=== PATIENT | female | born 1945 | race Caucasian/White ===

== ENCOUNTER 2016-01-30 07:29 | Inpatient (IN) | payer MEDICARE, OTHER ==
[2016-02-04] MEDS ORDERED: CARI350T20 PO (08:30)
[2016-02-04] MEDS ORDERED: ESTR.625 PO (08:30)
[2016-02-04] MEDS ORDERED: ISOS30TA3 PO (08:30)
[2016-02-04] MEDS ORDERED: NAPR500 PO (08:30)
[2016-02-04] MEDS ORDERED: METO25TA3 PO (08:30)
[2016-02-04] MEDS ORDERED: HYDR25TA5 PO (08:30)
[2016-02-04] MEDS ORDERED: GABA300C5 PO (08:30)
[2016-02-04] MEDS ORDERED: CYAN1000P IM (08:30)
--- NOTE | 2016-02-06 11:27 | MH ---
cc: Samina CORTÉS M.D. DATE OF ADMISSION 02/11/2016 ADMITTING DIAGNOSIS Severe osteoarthritic degeneration left knee now being admitted for left total knee arthroplasty. ADMISSION HISTORY AND PHYSICAL FOLLOWS This pleasant 70-year-old female is being admitted today for a left total knee arthroplasty due to severe painful osteoarthritic degeneration of the left knee. OTHER PAST HISTORY 1. The patient has a history of arthritis. 2. Heart problems and she has been cleared by her hotbed lever operator. 3. Low back pain and sciatica. CURRENT MEDICATIONS 1. Aspirin stopped before surgery. 2. Cyanocobalamin 3. Cyclobenzaprine 4. Hydrochlorothiazide 5. Isosorbide 6. Metoprolol 7. Premarin 8. Soma REVIEW OF SYSTEMS Noncontributory FAMILY HISTORY Noncontributory SOCIAL HISTORY She does not smoke or drink. ALLERGIES SHE IS ALLERGIC TO IODINE, BETADINE AND PENICILLIN. PHYSICAL EXAMINATION We find a 70-year-old female well-developed, well-nourished oriented x3 complaining of pain in her left knee. VITAL SIGNS: Blood pressure 120/82, pulse 50 and regular, respirations 20, temperature 97.5, pulse oximetry 97% on room air. HEENT: Eyes PERRL, EOMI. Ears, nose, mouth clear. NECK: Supple. LUNGS: Clear. HEART: Regular rate. ABDOMEN: Soft, positive bowel sounds, nontender. EXTREMITIES: The left knee has crepitance on range of motion neurovascularly to her toes. IMPRESSION At this time, severe painful osteoarthritic degeneration left knee. PLAN Admission for a left total knee arthroplasty today. The patient given prescription for postoperative pain control and anticoagulation control in the office. She understands to use Hibiclens scrub and Bactroban preoperatively. She has already had a right total knee. MD DIAMANTE Mir/CARLA /12:27 PM /11:20 AM
[2016-02-11 09:12] VITALS: BP 163/68; PULSE 58; RESP 20; TEMP 98; O2SAT 96
[2016-02-11] MEDS ORDERED: CLINDAMYCIN 900 MG/NS 100 ML IV SCH ×2 (09:30)
[2016-02-11] MEDS ORDERED: SODIUM CHLORID 0.9% 500 ML IV SCH (09:45)
[2016-02-11] MEDS ORDERED: METOPROLOL TARTRATE 25 MG TAB PO PRN (09:45)
[2016-02-11] MEDS ORDERED: VANCOMYCIN 1000 MG/NS 250 ML (for <70 kg) IV SCH ×2 (09:45)
[2016-02-11] MEDS ORDERED: LACTATED RINGER'S 1000 ML IV SCH (09:45)
[2016-02-11] MEDS ORDERED: INSULIN HUMAN REGULAR 1,000 UNITS/10 ML VIAL SQ PRN (09:45)
[2016-02-11] MEDS ORDERED: ceFAZolin INJ 1,000 MG VIAL ONE (10:10)
[2016-02-11] MEDS ORDERED: GENTAMICIN SULFATE 80 MG/2 ML VIAL ONE (10:13)
[2016-02-11] MEDS ORDERED: METO25TA3 PO (10:16)
[2016-02-11] MEDS ORDERED: TRANEXAMIC ACID INJ 840 MG in SODIUM CHLORIDE 0.9% INJ 100 ML IV SCH ×2 (10:30→14:00)
[2016-02-11] MEDS ORDERED: MIDAZOLAM HCL 5 MG/5 ML VIAL ONE (10:40)
[2016-02-11] MEDS ORDERED: FAMOTIDINE 20 MG/2 ML VIAL ONE (10:41)
--- NOTE | 2016-02-11 10:56 | HHI.FF ---
Face to Face Verification Diagnosis: (1) Total knee replacement status Physical Therapy Gait training Knee: Total knee, Protocol: Left, Full weight bearing Canvas Knee Splint: When in bed & 2 pillows btw thighs Nursing RN: 3 days/week x 2 weeks Nursing: Becka teaching, Dressing changes Dressing Changes: Daily dressing change, 4x4s, Gauze, Paper tape I have seen patient Urmila Ayala on 02/11/16. My clinical findings support the need for the requested home health care services because: Limited ability to care for self High risk of falls I certify that my clinical findings support that this patient is homebound because: Unsteady gait/balance Samina Guillermo MD Feb 11, 2016 10:56
[2016-02-11] MEDS ORDERED: WALKER WHEELS/F1 MIS (10:58)
[2016-02-11] MEDS ORDERED: COMMODE 3-IN-11 MIS (10:58)
[2016-02-11] MEDS ORDERED: CPMMACHINE (10:58)
[2016-02-11] MEDS ORDERED: NALOXONE HCL 0.4 MG/ML AMP IV PRN (11:00)
[2016-02-11] MEDS ORDERED: TRANEXAMIC ACID INJ 0 MG in SODIUM CHLORIDE 0.9% INJ 100 ML IV SCH (11:00)
[2016-02-11] MEDS ORDERED: ACETAMINOPHEN 325 MG TAB PO PRN (11:00)
[2016-02-11] MEDS ORDERED: Post-op Orders (for Pharmacy) MISC XX ONE (11:00)
[2016-02-11] MEDS ORDERED: diphenhydrAMINE HCL 50 MG/ML VIAL IV PRN (11:00)
[2016-02-11] MEDS ORDERED: SODIUM CHLORIDE 0.9% FLUSH 5 ML FLUSH IVF PRN (11:00)
[2016-02-11] MEDS ORDERED: BUPIVACAINE LIPOSO PF 1.3% INJ 20 ML, BUPIVACAINE PF 0.25% INJ 20 ML in SODIUM CHLORIDE... P-ARTICULR SCH (11:00)
[2016-02-11] MEDS ORDERED: ONDANSETRON HCL 4 MG/2 ML VIAL IV PUSH ONE (11:22)
[2016-02-11] MEDS ORDERED: PROPOFOL 200 MG/20 ML AMP IV ONE (11:22)
[2016-02-11] MEDS ORDERED: LACTATED RINGER'S 1000 ML INJ 1,000 ML IV ONE (11:22)
[2016-02-11] MEDS ORDERED: ONDANSETRON HCL 4 MG/2 ML VIAL IVP PRN (12:00)
[2016-02-11] MEDS ORDERED: CYANOCOBALAMIN 1000 MCG/ML VIAL IM SCH (12:00)
[2016-02-11] MEDS ORDERED: TEMAZEPAM 15 MG CAP PO PRN (12:00)
[2016-02-11] MEDS ORDERED: BUPIVACAINE HCL PF 0.5% 30 ML VIAL NB ONE (12:57)
[2016-02-11] MEDS ORDERED: BUPIVACAINE HCL PF 0.25% 30 ML VIAL NB ONE (12:58)
[2016-02-11] MEDS: GABAPENTIN 300 MG CAP PO SCH ×2 (13:00→17:54)
[2016-02-11] MEDS: PCA - TOTAL MG MORPHINE DELIVERED PER SHIFT SCH ×2 (14:00→21:14)
[2016-02-11] MEDS ORDERED: DO NOT ADM ANY ANTICOAGULANT DRUGS XX PRN (14:28)
[2016-02-11] MEDS ORDERED: *MEPERIDINE 25 MG INJ VIAL PERIprocedural Use ONLY ONE (14:39)
[2016-02-11] MEDS ORDERED: fentaNYL CITRATE 250 MCG/5 ML AMP ONE (14:39)
[2016-02-11] MEDS ORDERED: MORPHINE SULFATE 4 MG/ML INJ ONE (14:40)
[2016-02-11] MEDS ORDERED: *morphine SULFATE 8 MG/ML PERIprocedure ONLY ONE (14:49)
[2016-02-11] MEDS ORDERED: CLINDAMYCIN INJ 900 MG in SODIUM CHLORIDE 0.9% INJ 100 ML IV SCH (15:00)
[2016-02-11] MEDS: LACTATED RINGER'S 1000 ML INJ 1,000 ML IV SCH ×2 (15:09→21:19)
[2016-02-11] MEDS: MORPHINE SULFATE 30 MG/30 ML PCA IV SCH ×2 (15:21→21:28)
--- NOTE | 2016-02-11 15:23 | RADRPT ---
EXAM DATE/TIME: 02/11/2016 14:46 [facility] COMPARISON: CHEST SINGLE AP, March 21, 2015, 8:28. INDICATIONS : Evaluate knee post-op total replacement. MEDICAL HISTORY : None. SURGICAL HISTORY : None. ENCOUNTER: Initial ACUITY: 1 day PAIN SCORE: 10/10 LOCATION: Left Knee FINDINGS: The patient is post left knee arthroplasty. Orthopedic hardware is in excellent position and alignmen t is good. CONCLUSION: 1. Good alignment of the patient's left the arthroplasty. Bert Reyna MD on February 11, 2016 at 15:20 Board Certified Radiologist. This report was verified electronically.
[2016-02-11] MEDS: HYDROCHLOROTHIAZIDE 25 MG TAB PO SCH (17:00)
[2016-02-11] MEDS: ESTROGENS CONJUGATED 0.625 MG TAB PO SCH (17:00)
[2016-02-11 17:25] VITALS: BP 140/69; PULSE 51; RESP 16; TEMP 95.4; O2SAT 96
[2016-02-11] MEDS: CLINDAMYCIN INJ 900 MG in SODIUM CHLORIDE 0.9% INJ 100 ML IV SCH (17:55)
--- NOTE | 2016-02-11 18:18 | PD.CONS ---
[facility] Requested By Orthopedic surgery Reason for Consult Medical management Primary Care Physician Non-Staff Diagnoses: History of Present Illness 7-year-old female with a history of hypertension, prior history of right TKA, now with severe left knee OA despite medical management continued to have severe worsening left knee pain affecting her daily living of activity was taken to the OR and underwent left total knee arthroplasty. Patient is seen post procedure in room and complains of left knee pain, however denies any chest pain or shortness of breath. Otherwise vitals stable. [id number] in the room Review of Systems Other Other 12 systems reviewed and negative except for the one mentioned in the history of present illness Past Family Social History Allergies: Coded Allergies: Betadine (Verified Allergy, Severe, Hives, 02/04/16) Iodine (Verified Allergy, Severe, Hives, 02/04/16) Penicillin (Verified Allergy, Severe, SEVERE DIARRHEA, 02/04/16) Shellfish (Verified Allergy, Severe, HIVES, MOUTH FEELS SWOLLEN, 02/04/16) [place] (Verified Allergy, Severe, Hives, 02/04/16) Uncoded Allergies: STRAWBERRIES (Allergy, Unknown, 02/11/16) Past Medical History angina hypertension Raynaud's syndrome Left knee OA Past Surgical History s/p left total knee arthroplasty 02/11/16 Right total knee arthroplasty Back surgery Reported Medications 1. Aspirin 2. Cyanocobalamin 3. Cyclobenzaprine 4. Hydrochlorothiazide 5. Isosorbide 6. Metoprolol 7. Premarin 8. Soma Family History Noncontributory Social History Patient denies tobacco, alcohol or illicit drug intake Physical Exam Vital Signs Vital Signs Date Time Temp Pulse Resp B/P Pulse Ox O2 Delivery O2 Flow Rate FiO2 02/11/16 17:25 95.4 51 16 140/69 96 02/11/16 17:00 97.9 58 13 108/33 96 Nasal Cannula 2 02/11/16 16:30 50 12 140/70 93 Nasal Cannula 2 02/11/16 16:00 53 12 142/74 97 Nasal Cannula 2 02/11/16 15:30 61 12 137/66 97 Nasal Cannula 2 02/11/16 15:21 15 02/11/16 15:15 60 12 150/79 96 Nasal Cannula 3 02/11/16 15:00 90 14 141/75 97 Nasal Cannula 3 02/11/16 14:45 61 16 150/70 96 Nasal Cannula 3 02/11/16 14:32 97.6 62 15 138/68 86 Nasal Cannula 3 02/11/16 09:12 98.0 58 20 163/68 96 Physical Exam GENERAL: This is a well-nourished, well-developed patient, in no apparent distress. SKIN: No rashes, ecchymoses or lesions. Cool and dry. HEAD: Atraumatic. Normocephalic. No temporal or scalp tenderness. EYES: Pupils equal round and reactive. Extraocular motions intact. No scleral icterus. No injection or drainage. ENT: Nose without bleeding, purulent drainage or septal hematoma. Throat without erythema, tonsillar hypertrophy or exudate. Uvula midline. Airway patent. NECK: Trachea midline. No JVD or lymphadenopathy. Supple, nontender, no meningeal signs. CARDIOVASCULAR: Regular rate and rhythm without murmurs, gallops, or rubs. RESPIRATORY: Clear to auscultation. Breath sounds equal bilaterally. No wheezes , rales, or rhonchi. GASTROINTESTINAL: Abdomen soft, non-tender, nondistended. No hepato-splenomegaly , or palpable masses. No guarding. MUSCULOSKELETAL: Extremities without clubbing, cyanosis, or edema. No joint tenderness, effusion, or edema noted. No calf tenderness. Negative Homans sign bilaterally. Left knee repair, in dressing-neurovascular intact NEUROLOGICAL: Awake and alert. Cranial nerves II through XII intact. Motor and sensory grossly within normal limits. Five out of 5 muscle strength in all muscle groups. Normal speech. Laboratory Laboratory Tests Test 02/11/16 09:43 Blood Type O POSITIVE Antibody Screen NEGATIVE Imaging Last Impressions Knee X-Ray 02/11/16 1047 Signed Impressions: Service Date/Time: Thursday, February 11, 2016 14:46 - CONCLUSION: 1. Good alignment of the patient's left the arthroplasty. Bert Reyna MD Assessment and Plan Assessment and Plan 70-year-old female with 1-Left total knee arthroplasty 02/11/16: Management per orthopedic surgery, continue current postop care with IV antibiotics, pain management, Lovenox DVT prophylaxis. PT consult to treat and eval 2-Hypertension: Resume metoprolol, hydrochlorothiazide and Isosorbide mononitrate 3-Neuropathy: Continue Neurontin 4-DVT prophylaxis: Lovenox Check CBC, BMP in a.m. Thank you for this consultation Code Status Full code Discussed Condition With Patient, [id number] Napoleno Kirkpatrick MD Feb 11, 2016 18:17
[2016-02-11] MEDS ORDERED: RESP: ALBUTEROL 2.5 MG/IPRATROPIUM 0.5 MG NEB (PRN) NEB (18:30)
--- NOTE | 2016-02-11 19:04 | MP ---
cc: Samina GUILLERMO Corrected Copy: 02/18/16 DATE OF SURGERY 02/11/16 PREOPERATIVE DIAGNOSIS Osteoarthritic degeneration left knee. POSTOPERATIVE DIAGNOSIS Osteoarthritic degeneration left knee. PROCEDURE Total knee arthroplasty. COMPONENTS USED Consensus components with pre made cutting jigs. The sizes were the femur 4, tibia 2, a 10 insert and a size 2 patella. Two batches of cobalt blue cement. SURGEON Dr. Ivette Guillermo ENVELOPE FOLDING MACHINE OPERATOR Samina Mack, [facility] ANESTHESIA General intubation and block PROCEDURE IN DETAIL After successful induction of anesthesia, the patient is placed on the operating room table in the supine position. The knee is prepped and draped in the usual manner. A tourniquet is inflated at the upper thigh and set to 300 mmHg pressure after exsanguination of the lower extremity. A longitudinal incision is made extending from 3 inches proximal to the superior pole of the patella, across the patella in longitudinal fashion, and down past the insertion of the tibial tubercle into the proximal tibia. The incision is carried down through subcutaneous tissue along the medial aspect of the patella and retinaculum, down through the capsule to expose the knee joint. The patella and patellar tendon are freed up enough to allow the patella to be inverted and retracted off the lateral side of the knee joint. The knee joint is left exposed. Small osteophytes are removed. All soft tissue is removed to allow proper position of the femoral and tibial cutting jig guide. The first femoral jig is then inserted along the distal end of the femur after first measuring to decide whether this is a small, medium, or large component. The notch is then drilled and the tibial cutting guide inserted into the femoral cutting guide, along with the ankle brace to allow for proper measurement of the tibial cutting surface that needed to be resected. Pins are inserted into the tibial cutting jig and femoral cutting jig to hold them in place. An oscillating saw is then used to resect the surface of the tibia. The surface of the tibia is then completely removed using sharp and blunt dissection. The anterior and posterior cuts of the femur are then made as well using an oscillating saw through the cutting guide. All guides are then removed and the varus/valgus angulation cutting guide applied to the femur for proper measurement of the proper amount of valgus. The anterior cutting guide for the femur is then inserted at the anterior femoral cuts made. Next, the first block trial is inserted into the femur to allow for proper condyle drill holes to be made which are then made followed by removal of the bone between the condyles using an oscillating saw as well as the bone removed at the most posterior surface of the condyle. After this, this guide is removed and the chamfer cuts made using the chamfer cutting guide from both anterior and posterior. Next, the femoral trial is then inserted, the tibial surface reflected anterior to expose the tibial surface and a tibial stem guide is inserted after first measuring for a standard, standard plus, large, or large plus surface to be used. After the stem is impacted the trial tibial surface is applied followed by the trial meniscal components. After full range of motion is found with the appropriate length meniscal components varying the patella is prepared by resecting the posterior aspect of the patella using an oscillating saw, inserting a trial. The trial is then removed and the cruciate cutting guide applied using the bur to cut the cruciate cuts. After cruciate cuts are made all trials are removed. The wound is irrigated copiously with antibiotic solution and Water Pik and the actual components inserted into place using the aforementioned components. Tourniquet deflated. Total tourniquet time being 56 minutes at 300 mmHg pressure 120 mL of Exparel and 20 of Marcaine was injected around the knee joint for extra pain control. No drain utilized. Deep fascia approximated with running #2 quill subcutaneous tissue approximated using interrupted running 2-0 and 3-0 Monocryl suture and Steri-Strips sterile dressing, knee immobilizer. Estimated blood loss 200 mL. Sponge and suture count correct. The patient tolerated procedure well and left the operating in satisfactory condition. J. MD DIAMANTE Garcia/ /2:00 PM /9:31 AM
[2016-02-11 20:00] VITALS: BP 149/68; PULSE 69; RESP 16; TEMP 96.4; O2SAT 95
[2016-02-11] MEDS: METOPROLOL TARTRATE 25 MG TAB PO SCH (21:14)
[2016-02-11] MEDS: CARISOPRODOL 350 MG TAB PO PRN (21:14)
[2016-02-11] MEDS: ISOSORBIDE MONONITRATE 30 MG TAB PO SCH (21:14)
[2016-02-11] MEDS: SODIUM CHLORIDE 0.9% FLUSH 5 ML FLUSH IVF SCH (21:14)
[2016-02-11 23:00] VITALS: O2SAT 96
[2016-02-12] VITALS (8 sets, daily range): BP systolic 104–140; BP diastolic 51–68; PULSE 56–111; RESP 12–20; TEMP 95.7–99.6; O2SAT 93–100
[2016-02-12] MEDS: CLINDAMYCIN INJ 900 MG in SODIUM CHLORIDE 0.9% INJ 100 ML IV SCH ×2 (01:50→08:05)
[2016-02-12] MEDS: CARISOPRODOL 350 MG TAB PO PRN (04:19)
[2016-02-12] MEDS: PCA - TOTAL MG MORPHINE DELIVERED PER SHIFT SCH ×3 (06:00→20:25)
[2016-02-12] MEDS: CHLORHEXIDINE GLUCONATE 4% SOLN 120 ML BTL TOP SCH (07:15)
[2016-02-12 08:00] LABS: HEMATOCRIT 33.1 % (35.0-46.0); REVIEW FLAG FINAL
[2016-02-12] MEDS: GABAPENTIN 300 MG CAP PO SCH ×3 (08:04→16:30)
[2016-02-12] MEDS: ACETAMINOPHEN/HYDROcodone 325 MG/7.5 MG TAB PO PRN ×3 (08:04→20:17)
[2016-02-12] MEDS: SODIUM CHLORIDE 0.9% FLUSH 5 ML FLUSH IVF SCH ×2 (08:05→20:09)
[2016-02-12] MEDS: HYDROCHLOROTHIAZIDE 25 MG TAB PO SCH (08:06)
[2016-02-12] MEDS: ESTROGENS CONJUGATED 0.625 MG TAB PO SCH (08:06)
--- NOTE | 2016-02-12 08:11 | PD.ORT.PN ---
Subjective Subjective Remarks patient complaining of severe lumbar radiculopathy and spasming down entire left leg. Hx of radiculopathy worse today. Objective Vitals Vital Signs Date Time Temp Pulse Resp B/P Pulse Ox O2 Delivery O2 Flow Rate FiO2 02/12/16 04:00 97.8 111 17 131/62 94 02/12/16 00:00 99.6 74 16 123/60 97 02/11/16 23:00 96 Nasal Cannula 2.00 02/11/16 20:00 96.4 69 16 149/68 95 02/11/16 17:25 95.4 51 16 140/69 96 02/11/16 17:00 97.9 58 13 108/33 96 Nasal Cannula 2 02/11/16 16:30 50 12 140/70 93 Nasal Cannula 2 02/11/16 16:00 53 12 142/74 97 Nasal Cannula 2 02/11/16 15:30 61 12 137/66 97 Nasal Cannula 2 02/11/16 15:21 15 02/11/16 15:15 60 12 150/79 96 Nasal Cannula 3 02/11/16 15:00 90 14 141/75 97 Nasal Cannula 3 02/11/16 14:45 61 16 150/70 96 Nasal Cannula 3 02/11/16 14:32 97.6 62 15 138/68 86 Nasal Cannula 3 02/11/16 09:12 98.0 58 20 163/68 96 I/O 02/11/16 02/11/16 02/11/16 02/12/16 02/12/16 02/12/16 07:00 15:00 23:00 07:00 15:00 23:00 Intake Total 1000 ml 1165 ml 941 ml Output Total 200 ml 575 ml Balance 800 ml 1165 ml 366 ml Intake Oral 530 ml 360 ml IV Total 635 ml 581 ml Other 1000 ml Output Urine Total 575 ml Estimated Blood Loss 200 ml # Voids 0 # Bowel Movements 0 0 Imaging Last 24 hours Impressions Knee X-Ray 02/11/16 1047 Signed Impressions: Service Date/Time: Thursday, February 11, 2016 14:46 - CONCLUSION: 1. Good alignment of the patient's left the arthroplasty. Bert Reyna MD Objective Remarks wound dressing clean and dry. No calf tenderness. Assessment & Plan Ortho Post Op Day #: 1 Problem List: Assessment and Plan lumbar radiculopathy worse today after left tka yesterday. Will try ativan as well as ERCO MACHINE OPERATOR and soma. Watch PO2. Samina Guillermo MD Feb 12, 2016 08:11
[2016-02-12] MEDS ORDERED: LORazepam 1 MG TAB PO PRN (08:15)
[2016-02-12 08:34] LABS: BICARBONATE 30.9 MEQ/L (21.0-32.0); POTASSIUM 3.3 MEQ/L (3.5-5.1)
[2016-02-12] MEDS ORDERED: HYDROCHLOROTHIAZIDE 25 MG TAB PO SCH (09:00)
[2016-02-12] MEDS ORDERED: ESTROGENS CONJUGATED 0.625 MG TAB PO SCH (09:00)
[2016-02-12] MEDS ORDERED: PNEUMOCOCCAL POLYVALENT INJ 25 MCG/0.5 ML SYR IM ONE (10:00)
[2016-02-12] MEDS: LACTATED RINGER'S 1000 ML INJ 1,000 ML IV SCH ×2 (11:53→20:56)
[2016-02-12] MEDS: ENOXAPARIN SODIUM 30 MG/0.3 ML SYRINGE SQ SCH (12:46)
--- NOTE | 2016-02-12 13:09 | HHI.PR ---
Subjective Remarks Patient seen and examined Complains of left knee pain as well as pruritus to BUEs Vitals stable Patient with urinary retention Objective Vitals Vital Signs Date Time Temp Pulse Resp B/P Pulse Ox O2 Delivery O2 Flow Rate FiO2 02/12/16 11:53 97.5 65 12 104/52 94 02/12/16 08:00 95.7 62 12 140/68 98 02/12/16 04:00 97.8 111 17 131/62 94 02/12/16 00:00 99.6 74 16 123/60 97 02/11/16 23:00 96 Nasal Cannula 2.00 02/11/16 20:00 96.4 69 16 149/68 95 02/11/16 17:25 95.4 51 16 140/69 96 02/11/16 17:00 97.9 58 13 108/33 96 Nasal Cannula 2 02/11/16 16:30 50 12 140/70 93 Nasal Cannula 2 02/11/16 16:00 53 12 142/74 97 Nasal Cannula 2 02/11/16 15:30 61 12 137/66 97 Nasal Cannula 2 02/11/16 15:21 15 02/11/16 15:15 60 12 150/79 96 Nasal Cannula 3 02/11/16 15:00 90 14 141/75 97 Nasal Cannula 3 02/11/16 14:45 61 16 150/70 96 Nasal Cannula 3 02/11/16 14:32 97.6 62 15 138/68 86 Nasal Cannula 3 I/O 02/11/16 02/11/16 02/11/16 02/12/16 02/12/16 02/12/16 07:00 15:00 23:00 07:00 15:00 23:00 Intake Total 1000 ml 1165 ml 941 ml 667 ml Output Total 200 ml 575 ml Balance 800 ml 1165 ml 366 ml 667 ml Intake Oral 530 ml 360 ml IV Total 635 ml 581 ml 667 ml Other 1000 ml Output Urine Total 575 ml Estimated Blood Loss 200 ml # Voids 0 # Bowel Movements 0 0 Result Diagram: 02/12/16 0637 02/12/16 0637 Imaging Last Impressions Knee X-Ray 02/11/16 1047 Signed Impressions: Service Date/Time: Thursday, February 11, 2016 14:46 - CONCLUSION: 1. Good alignment of the patient's left the arthroplasty. Bert Reyna MD Objective Remarks GENERAL: NAD SKIN: Warm and dry. HEAD: Normocephalic. EYES: No scleral icterus. No injection or drainage. NECK: Supple, trachea midline. No JVD or lymphadenopathy. CARDIOVASCULAR: Regular rate and rhythm without murmurs, gallops, or rubs. RESPIRATORY: Breath sounds equal bilaterally. No accessory muscle use. GASTROINTESTINAL: Abdomen soft, non-tender, nondistended. MUSCULOSKELETAL: No cyanosis, or edema. Left knee repair-neurovascular intact BACK: Nontender without obvious deformity. No CVA tenderness. A/P Assessment and Plan 70-year-old female with 1-Left total knee arthroplasty 02/11/16: POD #1 and Management per orthopedic surgery, continue current postop care with IV antibiotics, pain management, Lovenox DVT prophylaxis. PT consult to treat and eval 2-Hypertension: Continue metoprolol, hydrochlorothiazide and Isosorbide mononitrate 3-Neuropathy: Continue Neurontin 4-DVT prophylaxis: Lovenox 5-Urinary retention: Tarango in place Napoleon Kirkpatrick MD Feb 12, 2016 13:09
[2016-02-12] MEDS: diphenhydrAMINE HCL 25 MG CAP PO PRN (20:07)
[2016-02-12] MEDS: POLYETHYLENE GLYCOL 17 GM PKG PO SCH (20:08)
[2016-02-12] MEDS: MAGNESIUM HYDROXIDE SUSP 30 ML CUP PO SCH (20:10)
[2016-02-12] MEDS: MULTIVITAMINS/MINERALS THERAPEUTIC TAB PO SCH (20:10)
[2016-02-12] MEDS: BISACODYL EC 5 MG TABEC PO SCH (20:11)
[2016-02-12] MEDS: DOCUSATE SODIUM 100 MG CAP PO SCH (20:11)
[2016-02-12] MEDS: METOPROLOL TARTRATE 25 MG TAB PO SCH (20:16)
[2016-02-12] MEDS: ISOSORBIDE MONONITRATE 30 MG TAB PO SCH (20:24)
[2016-02-13 00:07] VITALS: BP 139/65; PULSE 66; RESP 19; TEMP 97.1; O2SAT 93
[2016-02-13] MEDS: ENOXAPARIN SODIUM 30 MG/0.3 ML SYRINGE SQ SCH ×2 (02:09→14:00)
[2016-02-13] MEDS: ACETAMINOPHEN/HYDROcodone 325 MG/7.5 MG TAB PO PRN ×4 (03:22→22:17)
[2016-02-13] MEDS: PCA - TOTAL MG MORPHINE DELIVERED PER SHIFT SCH ×3 (03:45→22:00)
[2016-02-13] MEDS: diphenhydrAMINE HCL 25 MG CAP PO PRN (06:32)
[2016-02-13 07:20] LABS: HEMATOCRIT 29.4 % (35.0-46.0); REVIEW FLAG FINAL
[2016-02-13 08:00] VITALS: BP 120/58; PULSE 62; RESP 16; TEMP 97.7; O2SAT 94
[2016-02-13 08:20] VITALS: O2SAT 93
[2016-02-13] MEDS: SODIUM CHLORIDE 0.9% FLUSH 5 ML FLUSH IVF SCH ×2 (09:00→21:00)
[2016-02-13] MEDS: MAGNESIUM HYDROXIDE SUSP 30 ML CUP PO SCH ×2 (09:00→22:07)
[2016-02-13] MEDS: BISACODYL EC 5 MG TABEC PO SCH ×2 (09:00→22:06)
[2016-02-13] MEDS: POLYETHYLENE GLYCOL 17 GM PKG PO SCH ×2 (09:00→21:00)
[2016-02-13] MEDS: GABAPENTIN 300 MG CAP PO SCH ×3 (09:00→17:11)
[2016-02-13] MEDS ORDERED: PNEUMOCOCCAL POLYVALENT INJ 25 MCG/0.5 ML SYR IM ONE (09:00)
[2016-02-13] MEDS: ESTROGENS CONJUGATED 0.625 MG TAB PO SCH (09:00)
[2016-02-13] MEDS: DOCUSATE SODIUM 100 MG CAP PO SCH ×2 (09:00→22:06)
[2016-02-13] MEDS: MULTIVITAMINS/MINERALS THERAPEUTIC TAB PO SCH ×2 (09:00→22:07)
--- NOTE | 2016-02-13 09:39 | HHI.PR ---
Subjective Remarks Patient seen and examined She had one episode of nausea and emesis during breakfast Afebrile Objective Vitals Vital Signs Date Time Temp Pulse Resp B/P Pulse Ox O2 Delivery O2 Flow Rate FiO2 02/13/16 08:20 93 Nasal Cannula 2.00 02/13/16 08:00 97.7 62 16 120/58 94 02/13/16 07:48 Nasal Cannula 2.00 02/13/16 00:07 97.1 66 19 139/65 93 02/12/16 20:27 100 Nasal Cannula 2.00 02/12/16 20:15 97.7 72 20 135/63 93 02/12/16 16:31 96.0 56 12 113/51 100 02/12/16 13:52 98 Nasal Cannula 2.00 02/12/16 11:53 97.5 65 12 104/52 94 I/O 02/12/16 02/12/16 02/12/16 02/13/16 02/13/16 02/13/16 07:00 15:00 23:00 07:00 15:00 23:00 Intake Total 941 ml 907 ml 854 ml 969 ml Output Total 575 ml 340 ml 200 ml 300 ml Balance 366 ml 567 ml 654 ml 669 ml Intake Oral 360 ml 240 ml 240 ml 600 ml IV Total 581 ml 667 ml 614 ml 369 ml Output Urine Total 575 ml 340 ml 200 ml 300 ml # Bowel Movements 0 0 0 Result Diagram: 02/13/16 0627 02/12/16 0637 Imaging Last Impressions Knee X-Ray 02/11/16 1047 Signed Impressions: Service Date/Time: Thursday, February 11, 2016 14:46 - CONCLUSION: 1. Good alignment of the patient's left the arthroplasty. Bert Reyna MD Objective Remarks GENERAL: NAD SKIN: Warm and dry. HEAD: Normocephalic. EYES: No scleral icterus. No injection or drainage. NECK: Supple, trachea midline. No JVD or lymphadenopathy. CARDIOVASCULAR: Regular rate and rhythm without murmurs, gallops, or rubs. RESPIRATORY: Breath sounds equal bilaterally. No accessory muscle use. GASTROINTESTINAL: Abdomen soft, non-tender, nondistended. MUSCULOSKELETAL: No cyanosis, or edema. Left knee repair-neurovascular intact BACK: Nontender without obvious deformity. No CVA tenderness. A/P Assessment and Plan 70-year-old female with 1-Left total knee arthroplasty 02/11/16: POD #1 and Management per orthopedic surgery, continue current postop care with pain management, antiemetic for nausea. Lovenox DVT prophylaxis. PT consult to treat and eval 2-Hypertension: Continue metoprolol, hydrochlorothiazide and Isosorbide mononitrate 3-Neuropathy: Continue Neurontin 4-DVT prophylaxis: Lovenox 5-Urinary retention: Tarango in place however will plan to discontinue it today Napoleon Kirkpatrick MD Feb 13, 2016 09:39
[2016-02-13] MEDS: CHLORHEXIDINE GLUCONATE 4% SOLN 120 ML BTL TOP SCH (09:45)
[2016-02-13] MEDS ORDERED: BACITRACIN OINT 0.9 GM PKT TOP PRN (10:15)
--- NOTE | 2016-02-13 11:17 | PD.ORT.PN ---
Subjective Subjective Remarks patient complaining of some spasming down entire left leg. Hx of radiculopathy better today. Somewhat nauseated today. Objective Vitals Vital Signs Date Time Temp Pulse Resp B/P Pulse Ox O2 Delivery O2 Flow Rate FiO2 02/13/16 08:20 93 Nasal Cannula 2.00 02/13/16 08:00 97.7 62 16 120/58 94 02/13/16 07:48 Nasal Cannula 2.00 02/13/16 00:07 97.1 66 19 139/65 93 02/12/16 20:27 100 Nasal Cannula 2.00 02/12/16 20:15 97.7 72 20 135/63 93 02/12/16 16:31 96.0 56 12 113/51 100 02/12/16 13:52 98 Nasal Cannula 2.00 02/12/16 11:53 97.5 65 12 104/52 94 I/O 02/12/16 02/12/16 02/12/16 02/13/16 02/13/16 02/13/16 06:59 14:59 22:59 06:59 14:59 22:59 Intake Total 941 ml 667 ml 1094 ml 969 ml Output Total 575 ml 540 ml 300 ml Balance 366 ml 667 ml 554 ml 669 ml Intake Oral 360 ml 480 ml 600 ml IV Total 581 ml 667 ml 614 ml 369 ml Output Urine Total 575 ml 540 ml 300 ml # Bowel Movements 0 0 0 Result Diagram: 02/13/16 0627 02/12/16 0637 Imaging Last 24 hours Impressions Knee X-Ray 02/11/16 1047 Signed Impressions: Service Date/Time: Thursday, February 11, 2016 14:46 - CONCLUSION: 1. Good alignment of the patient's left the arthroplasty. Bert Reyna MD Objective Remarks wound dressing clean and dry. No calf tenderness. Assessment & Plan Ortho Post Op Day #: 2 Problem List: Assessment and Plan doing fairly well today. Home tomorrow. Samnia Guillermo MD Feb 13, 2016 11:16
[2016-02-13 12:00] VITALS: BP 143/70; PULSE 70; RESP 16; TEMP 99.2; O2SAT 96
[2016-02-13] MEDS: HYDROCHLOROTHIAZIDE 25 MG TAB PO SCH (12:23)
[2016-02-13] MEDS: ISOSORBIDE MONONITRATE 30 MG TAB PO SCH (12:23)
[2016-02-13] MEDS: LACTATED RINGER'S 1000 ML INJ 1,000 ML IV SCH (12:24)
[2016-02-13 16:00] VITALS: BP 129/63; PULSE 61; RESP 16; TEMP 97.7; O2SAT 97
[2016-02-13 21:00] VITALS: BP 126/63; PULSE 57; RESP 17; TEMP 98.1; O2SAT 95
[2016-02-13] MEDS: METOPROLOL TARTRATE 25 MG TAB PO SCH (22:07)
[2016-02-14] MEDS: LACTATED RINGER'S 1000 ML INJ 1,000 ML IV SCH (00:09)
[2016-02-14 00:25] VITALS: BP 114/54; PULSE 61; RESP 17; TEMP 97.7; O2SAT 93
[2016-02-14] MEDS: ACETAMINOPHEN/HYDROcodone 325 MG/7.5 MG TAB PO PRN ×3 (03:03→12:44)
[2016-02-14] MEDS: ENOXAPARIN SODIUM 30 MG/0.3 ML SYRINGE SQ SCH ×2 (03:03→12:43)
[2016-02-14] MEDS: PCA - TOTAL MG MORPHINE DELIVERED PER SHIFT SCH ×2 (04:14→12:44)
[2016-02-14] MEDS: SODIUM CHLORIDE 0.9% FLUSH 5 ML FLUSH IVF SCH (09:00)
[2016-02-14] MEDS: HYDROCHLOROTHIAZIDE 25 MG TAB PO SCH (09:00)
[2016-02-14] MEDS: POLYETHYLENE GLYCOL 17 GM PKG PO SCH (09:00)
[2016-02-14] MEDS: MAGNESIUM HYDROXIDE SUSP 30 ML CUP PO SCH (09:00)
[2016-02-14] MEDS: BISACODYL EC 5 MG TABEC PO SCH (09:00)
[2016-02-14] MEDS: DOCUSATE SODIUM 100 MG CAP PO SCH (09:00)
[2016-02-14] MEDS: ESTROGENS CONJUGATED 0.625 MG TAB PO SCH (09:00)
[2016-02-14] MEDS: ISOSORBIDE MONONITRATE 30 MG TAB PO SCH (09:10)
[2016-02-14] MEDS: MULTIVITAMINS/MINERALS THERAPEUTIC TAB PO SCH (09:10)
[2016-02-14] MEDS: GABAPENTIN 300 MG CAP PO SCH ×2 (09:10→12:43)
[2016-02-14] MEDS ORDERED: HYDR-3580 PO (09:43)
--- NOTE | 2016-02-14 09:45 | HHI.DS ---
Discharge Summary Admission Date Feb 11, 2016 at 08:49 Discharge Date: Feb 14, 2016 Admitting Diagnosis osteoarthritic degeneration left knee. Diagnosis: (1) Total knee replacement status Diagnosis: Principal Brief History This is a 70 year old female patient CBC/BMP: 02/13/16 0627 02/12/16 0637 Significant Findings Laboratory Tests Test 02/12/16 02/13/16 06:37 06:27 Hemoglobin 11.0 GM/DL 9.9 GM/DL (11.6-15.3) (11.6-15.3) Hematocrit 33.1 % 29.4 % (35.0-46.0) (35.0-46.0) Potassium Level 3.3 MEQ/L (3.5-5.1) Estimat Glomerular Filtration 55 ML/MIN (>89) Rate Calcium Level 8.3 MG/DL (8.5-10.1) PE at Discharge wound dressing clean and dry. No calf tenderness. Hospital Course pt underwent left total knee arthroplasty on day of admission. She received a course of prophylactic IV antibiotics and started on anticoagulation therapy. She remained afebrile with stable vital signs. She tolerated food and fluids well and began OOB and had PT twice daily. She was discharged on POD #3 in good condition to SNF for continuation of care tolerating PO pain meds. Pt Condition on Discharge: Good Discharge Disposition: Discharge to SNF Discharge Instructions Diet Instructions: As Tolerated, No Restrictions, Heart Healthy Diet Activities You Can Perform: Weight Bearing as Rosario, Shower Only-No Bath Activities to Avoid: Bathing, Driving Samina Guillermo MD Feb 14, 2016 09:45
--- NOTE | 2016-02-14 09:47 | PD.ORT.PN ---
Subjective Subjective Remarks patient more comfortable today.. Hx of radiculopathy better today. Objective Vitals Vital Signs Date Time Temp Pulse Resp B/P Pulse Ox O2 Delivery O2 Flow Rate FiO2 02/14/16 07:41 Room Air 02/14/16 00:25 97.7 61 17 114/54 93 02/13/16 21:00 98.1 57 17 126/63 95 02/13/16 20:13 Nasal Cannula 2.00 02/13/16 16:00 97.7 61 16 129/63 97 02/13/16 12:00 99.2 70 16 143/70 96 I/O 02/13/16 02/13/16 02/13/16 02/14/16 02/14/16 02/14/16 07:00 15:00 23:00 07:00 15:00 23:00 Intake Total 969 ml 240 ml 240 ml Output Total 300 ml 275 ml Balance 669 ml -35 ml 240 ml Intake Oral 600 ml 240 ml 240 ml IV Total 369 ml Output Urine Total 300 ml 275 ml # Voids 2 # Bowel Movements 0 0 0 Result Diagram: 02/13/16 0627 02/12/16 0637 Imaging Last 24 hours Impressions Knee X-Ray 02/11/16 1047 Signed Impressions: Service Date/Time: Thursday, February 11, 2016 14:46 - CONCLUSION: 1. Good alignment of the patient's left the arthroplasty. Bert Reyna MD Objective Remarks wound dressing clean and dry. No calf tenderness. Sitting up in chair today. Assessment & Plan Ortho Post Op Day #: 3 Problem List: (1) Total knee replacement status Assessment and Plan doing fairly well today. SNF today. Samina Guillermo MD Feb 14, 2016 09:47
--- NOTE | 2016-02-14 10:37 | HHI.PR ---
Subjective Remarks Patient seen and examined Denies any mole episode nausea and vomiting Pain to left knee control She is looking forward discharge to [facility] Objective Vitals Vital Signs Date Time Temp Pulse Resp B/P Pulse Ox O2 Delivery O2 Flow Rate FiO2 02/14/16 07:41 Room Air 02/14/16 00:25 97.7 61 17 114/54 93 02/13/16 21:00 98.1 57 17 126/63 95 02/13/16 20:13 Nasal Cannula 2.00 02/13/16 16:00 97.7 61 16 129/63 97 02/13/16 12:00 99.2 70 16 143/70 96 I/O 02/13/16 02/13/16 02/13/16 02/14/16 02/14/16 02/14/16 07:00 15:00 23:00 07:00 15:00 23:00 Intake Total 969 ml 240 ml 240 ml Output Total 300 ml 275 ml Balance 669 ml -35 ml 240 ml Intake Oral 600 ml 240 ml 240 ml IV Total 369 ml Output Urine Total 300 ml 275 ml # Voids 2 # Bowel Movements 0 0 0 Result Diagram: 02/13/16 0627 02/12/16 0637 Objective Remarks GENERAL: NAD SKIN: Warm and dry. HEAD: Normocephalic. EYES: No scleral icterus. No injection or drainage. NECK: Supple, trachea midline. No JVD or lymphadenopathy. CARDIOVASCULAR: Regular rate and rhythm without murmurs, gallops, or rubs. RESPIRATORY: Breath sounds equal bilaterally. No accessory muscle use. GASTROINTESTINAL: Abdomen soft, non-tender, nondistended. MUSCULOSKELETAL: No cyanosis, or edema. Left knee repair-neurovascular intact BACK: Nontender without obvious deformity. No CVA tenderness. A/P Assessment and Plan 70-year-old female with 1-Left total knee arthroplasty 02/11/16: POD #1 and Management per orthopedic surgery, continue current postop care with pain management, antiemetic for nausea. Lovenox DVT prophylaxis. PT consult to treat and eval 2-Hypertension: Continue metoprolol, hydrochlorothiazide and Isosorbide mononitrate 3-Neuropathy: Continue Neurontin 4-DVT prophylaxis: Lovenox 5-Urinary retention:Resolved. Tarango removed Discharge Planning Clear for discharge for medicine Napoleon Kirkpatrick MD Feb 14, 2016 10:37
[2016-02-14 11:40] VITALS: BP 145/69; PULSE 70; RESP 20; TEMP 96.6; O2SAT 96
[2016-02-14] MEDS ORDERED: ENOX30IN SQ (11:54)
== END 2016-02-14 14:09 | DRG 470 ==
LOC: HSDI 02-11 08:49 → N06A 02-11 17:18
PROVIDERS: ADMIT Surgery; ATTEND Surgery
PROC: 3E0T3BZ Introduction of Anesthetic Agent into Peripheral Nerves and Plexi, Percutaneous Approach (ICD-10-PCS; 2016-02-11)
PROC: 0SRD0J9 Replacement of Left Knee Joint with Synthetic Substitute, Cemented, Open Approach (ICD-10-PCS; principal; 2016-02-11 11:46)
PROC: 0T9B70Z Drainage of Bladder with Drainage Device, Via Natural or Artificial Opening (ICD-10-PCS; 2016-02-12)
DX: M17.12 Unilateral primary osteoarthritis, left knee (principal); G62.9 Polyneuropathy, unspecified; I10 Essential (primary) hypertension; M54.40 Lumbago with sciatica, unspecified side; I20.9 Angina pectoris, unspecified; I73.00 Raynaud's syndrome without gangrene; M54.16 Radiculopathy, lumbar region; L29.9 Pruritus, unspecified; R33.9 Retention of urine, unspecified; R11.2 Nausea with vomiting, unspecified; Z23 Encounter for immunization; Z96.651 Presence of right artificial knee joint
CPT/HCPCS: 36415; 73560; 80048; 85014; 85018; 86850; 86900; 86901; 90471; 90732; 94150; C1776; C9290; G0009; J0690; J1580; J1650; J2175; J2250; J2270; J2405; J3010; J7120; L1830